=== PATIENT | male | born 1995 | race Two or more races ===

== ENCOUNTER 2018-02-07 00:33 | Emergency (ER) | payer SELFPAY ==
[~2018-02-07] VITALS: Ht 190.5 cm; Wt 79.4 kg
[2018-02-07 00:38] VITALS: BP 135/64
--- NOTE | 2018-02-07 00:40 | Emergency Room Report ---
History of Present Illness General Chief Complaint: Left leg laceration Present Illness HPI Patient is a 22-year-old male who presented after increased left lower extremity pain. The patient reports having injured his leg at work. He reports having a fallen and cut himself on some metal. He reports having pain to the anterior left leg. He denies any recent tetanus vaccine. The patient was increased bleeding. Injury occurred approximately 1 hour prior to arrival. Allergies: Coded Allergies: No Known Allergies (Unverified , 02/07/18) Patient History Past Medical History: see triage record Reviewed Nursing Documentation: PMH: Agreed; PSxH: Agreed Review of Systems All Other Systems: negative except mentioned in HPI Physical Exam General Appearance: well appearing, no apparent distress, alert, GCS 15 Head: normocephalic, atraumatic ENT: hearing grossly normal, normal voice Neck: full range of motion, supple Respiratory: no respiratory distress, speaking full sentences Cardiovascular #1: normal inspection, regular rate, rhythm Gastrointestinal: normal inspection Musculoskeletal: normal inspection, back normal, no calf tenderness Neurologic: normal inspection, alert, oriented x3, responsive, normal gait Psychiatric: mood/affect normal Skin: other - left leg laceration, 3 cm linear, skin laceration, 1 cm Procedures Laceration/Wound Repair Laceration/Wound Repair : Consent: Verbal Wound Location: lower extremity Wound's Depth, Shape: superficial Wound Length (cm): 3 Wound Explored: clean Irrigated w/ Saline (ccs): 50 Betadine Prep?: Yes Anesthesia: Lidocaine w/ Epi Volume Anesthetic (ccs): 4 Wound Debrided: minimal Wound Repaired With: fermín - 5 Patient Tolerated: Well Complications: None Medical Decision Making Diagnostic Impression: Primary Impression: Laceration ER Course Patient presented for laceration. Differential diagnoses included Fracture, foreign body, nerve injury, arterial injury among others. Patient has a benign exam and does not appear to require any further imaging or laboratory testing at this time. The patient's wound was irrigated. He is given tetanus vaccine. Patient given prescription for Keflex as well as ibuprofen for pain. He was advised wound check in 3 days. Patient was advised a staple removal in 10 to 14 days. The patient was advised to return if any problems. Status: improved Disposition: HOME, SELF-CARE Condition: Stable Scripts Ibuprofen* (MOTRIN*) 600 Mg Tablet 600 MG ORAL Q8H PRN for For Pain, #30 TAB 0 Refills Prov: Ramez Solis MD 02/07/18 Cephalexin* (KEFLEX*) 500 Mg Capsule 500 MG ORAL EVERY 6 HOURS, #40 CAP Prov: Ramez Solis MD 02/07/18 Ramez Solis MD Feb 07, 2018 00:40
[2018-02-07] MEDS ORDERED: Lidocaine 1% 10mg/ml/Epi 0.005mg/ml 30ml vial INJ ONE ×2 (00:47→01:00)
[2018-02-07] MEDS ORDERED: CEPHALEXIN500 MG ORAL (00:55)
[2018-02-07] MEDS ORDERED: IBUPROFEN600 MG ORAL (00:55)
[2018-02-07] MEDS ORDERED: Bacitracin Oint UD TOPIC ONE (01:00)
[2018-02-07] MEDS ORDERED: Tetanus/Diptheria/Pertussis Vaccine 0.5ml Syr IM ONE (01:00)
[2018-02-07 01:07] VITALS: BP 135/64
== END 2018-02-07 01:08 | disposition home or self-care (01) ==
LOC: EMR 00:45
DX: S81.812A Laceration without foreign body, left lower leg, initial encounter (principal); W45.8XXA Other foreign body or object entering through skin, initial encounter; Y92.89 Other specified places as the place of occurrence of the external cause; Z23 Encounter for immunization
CPT/HCPCS: 90471; 90715; 99283